=== PATIENT | male | born 1980 | race African-American/Black ===

== ENCOUNTER 2017-02-16 18:52 | Emergency (ER) | payer OTHER ==
[~2017-02-16 18:52] MED LIST: Ondansetron ODT 4 MG TAB ONE; Sodium Chloride 0.9% 1,000 ML BAG ONE
[2017-02-16 21:27] LABS: #Monocytes 0.5 thou/uL (0.11-0.59); #Neutrophils 3.3 thou/uL (1.40-6.50); %Basophils 0.8 % (0.0-1.0); %Eosinophils 0.7 % (0.0-10.0); %Lymphocytes 34.2 % (21.0-51.0); %Monocytes 8.2 % (0.0-10.0); %Neutrophils 56.2 % (42.0-75.0); Hemoglobin 17.9 g/dL (14.0-18.0); Mean Corpuscular HGB CONC 33.2 g/dL (32.0-36.0); Mean Corpuscular Hemoglobin 29.2 pg (27.0-31.0); Mean Platelet Volume 5.8 fL (7.4-10.4); Platelet Count 264 thou/uL (130-400); RBC Distribution Width 12.2 % (11.5-14.5); Red Blood Cell (RBC) Count 6.12 mill/uL (4.70-6.10); White Blood Cell (WBC) Count 5.9 thou/uL (4.8-10.8)
[2017-02-16 21:28] LABS: ALT (SGPT) 16 U/L (8-55); AST (SGOT) 20 U/L (5-34); Albumin 4.8 g/dL (3.5-5.0); Alkaline Phosphatase 84 U/L (40-150); Anion Gap 17 mmol/L (10-20); BUN (Urea Nitrogen) 15 mg/dL (8.9-20.6); CK (CPK) 139 U/L (30-200); Calc. Creatinine Clearance 0 mL/min (70-130); Calcium 9.8 mg/dL (7.8-10.44); Carbon Dioxide 25 mmol/L (22-29); Chloride 104 mmol/L (98-107); Estimated GFR-MDRD 66; Globulin 2.8 g/dL (2.4-3.5); Glucose 82 mg/dL (70-105); Lipase 23 U/L (8-78); Potassium 4.7 mmol/L (3.5-5.1); Protein, Total 7.6 g/dL (6.0-8.3); Sodium 141 mmol/L (136-145)
[2017-02-16 21:29] LABS: MDiff Complete? YES; Manual Diff?? NO
[2017-02-16 21:30] LABS: Bilirubin Positive (Negative); Clarity Clear (Clear); Glucose, Urine (Dipstick) Negative (Negative); Icto Positive (Negative); Leukocyte Negative (Negative); Nitrite Negative (Negative); Protein, Urine (Dipstick) Trace mg/dL (Neg-Trace); Specific Gravity, Urine 1.032 (1.002-1.036); pH, Urine 5.5 (5.0-9.0)
[2017-02-16 21:31] LABS: Bacteria/HPF None Seen HPF (None Seen); Blood, Urine Trace (Negative); RBC/HPF 0-3 HPF (0-3); Squamous Epithelial 0-3 HPF (0-3)
--- NOTE | 2017-02-17 07:31 | RAD ---
PORTABLE AP CHEST X-RAY 02/16/2017 HISTORY: Arm and chest pain. History of tuberculosis. FINDINGS: Cardiac silhouette and pulmonary vasculature are within normal limits. Lungs are clear. Osseous st ructures are intact. IMPRESSION: 1. No acute cardiopulmonary process. 2. No radiographic findings to suggest active tuberculosis. POS: [facility]
== END 2017-02-16 22:29 | disposition home or self-care (01) ==
LOC: NAV ERS 18:52
DX: E86.0 Dehydration (principal)
CPT/HCPCS: 71010; 80053; 81003; 81015; 82550; 83690; 85025; 96361; 96374; J7050; Q0162

== ENCOUNTER 2019-07-11 10:14 | Emergency (ER) | payer SELFPAY ==
[2019-07-11] MEDS ORDERED: cloNIDine 0.1 MG TAB ONE (10:49)
[2019-07-11 11:44] LABS: #Basophils 0.1 thou/uL (0.0-0.2); #Lymphocytes 1.5 thou/uL (1.20-3.40); #Monocytes 0.4 thou/uL (0.11-0.59); #Neutrophils 3.8 thou/uL (1.40-6.50); %Basophils 1.1 % (0.0-1.0); %Eosinophils 0.5 % (0.0-10.0); %Lymphocytes 25.9 % (21.0-51.0); %Monocytes 6.9 % (0.0-10.0); %Neutrophils 65.7 % (42.0-75.0); Hemoglobin 14.3 g/dL (14.0-18.0); Mean Corpuscular HGB CONC 33.6 g/dL (32.0-36.0); Mean Corpuscular Hemoglobin 31.6 pg (27.0-31.0); Mean Corpuscular Volume 93.9 fL (78.0-98.0); Mean Platelet Volume 5.5 fL (7.4-10.4); Platelet Count 291 thou/uL (130-400); RBC Distribution Width 13.5 % (11.5-14.5); Red Blood Cell (RBC) Count 4.54 mill/uL (4.70-6.10); White Blood Cell (WBC) Count 5.8 thou/uL (4.8-10.8)
--- NOTE | 2019-07-11 11:44 | RAD ---
EXAM: Chest PA and lateral: HISTORY: Chest pain COMPARISON: 02/16/2017 FINDINGS: Heart: Normal cardiac silhouette Aorta: Unremarkable Pulmonary vessels: Normal Costophrenic angles: Costophrenic angles are clear. Lungs: No consolidation or masses. Pneumothorax: No pneumothorax Osseous structures: No osseous abnormalities IMPRESSION: No acute cardiopulmonary process.
[2019-07-11 11:56] LABS: ALT (SGPT) 30 U/L (8-55); AST (SGOT) 27 U/L (5-34); Albumin 4.7 g/dL (3.5-5.0); Alkaline Phosphatase 71 U/L (40-110); Anion Gap 13 mmol/L (10-20); BUN (Urea Nitrogen) 9 mg/dL (8.9-20.6); Bilirubin, Total 0.6 mg/dL (0.2-1.2); Calc. Creatinine Clearance 0 mL/min (70-130); Calcium 9.4 mg/dL (7.8-10.44); Carbon Dioxide 27 mmol/L (22-29); Chloride 105 mmol/L (98-107); Estimated GFR-MDRD Greater than 90; Globulin 2.3 g/dL (2.4-3.5); Glucose 88 mg/dL (70-105); Sodium 141 mmol/L (136-145)
== END 2019-07-11 13:38 | disposition home or self-care (01) ==
LOC: NAV ERS 10:14
DX: F41.9 Anxiety disorder, unspecified (principal); I10 Essential (primary) hypertension; J45.909 Unspecified asthma, uncomplicated; F17.220 Nicotine dependence, chewing tobacco, uncomplicated
CPT/HCPCS: 36415; 71046; 80053; 85025; 93005

== ENCOUNTER 2019-07-11 18:24 | Emergency (ER) | payer SELFPAY ==
[2019-07-11] MEDS ORDERED: Lorazepam 0.5 MG TAB ONE (18:37)
== END 2019-07-11 20:43 | disposition home or self-care (01) ==
LOC: NAV ERS 18:24
DX: F41.0 Panic disorder [episodic paroxysmal anxiety] (principal); J45.909 Unspecified asthma, uncomplicated; F17.220 Nicotine dependence, chewing tobacco, uncomplicated
CPT/HCPCS: 99283

== ENCOUNTER 2019-12-11 16:14 | Emergency (ER) | payer SELFPAY | END 2019-12-11 16:53 | disposition home or self-care (01) | LOC: NAV ER/OP 16:14 | DX: S91.201A Unspecified open wound of right great toe with damage to nail, initial encounter (principal); I10 Essential (primary) hypertension; J45.909 Unspecified asthma, uncomplicated; F17.220 Nicotine dependence, chewing tobacco, uncomplicated; Z79.899 Other long term (current) drug therapy; W23.0XXA Caught, crushed, jammed, or pinched between moving objects, initial encounter | CPT/HCPCS: 99283 ==

== ENCOUNTER 2020-05-09 16:37 | Emergency (ER) | payer SELFPAY ==
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
== END 2020-05-09 18:23 | disposition home or self-care (01) ==
LOC: NAV ERS 16:37
DX: S40.011A Contusion of right shoulder, initial encounter (principal); S20.211A Contusion of right front wall of thorax, initial encounter; I10 Essential (primary) hypertension; F17.220 Nicotine dependence, chewing tobacco, uncomplicated; V43.53XA Car driver injured in collision with pick-up truck in traffic accident, initial encounter

== ENCOUNTER 2020-06-02 07:25 | Emergency (ER) | payer SELFPAY ==
[2020-06-02] MEDS ORDERED: Ketorolac Tromethamine 30 MG/ML VIAL ONE (07:53)
[2020-06-02] MEDS ORDERED: Ondansetron PF 4 MG/2 ML Vial ONE (07:53)
[2020-06-02] MEDS ORDERED: Pantoprazole 40 MG VIAL ONE (07:53)
--- NOTE | 2020-06-02 08:12 | RAD ---
RADIOGRAPH CHEST 2 VIEWS: DATE: 06/02/2020 HISTORY: 39-year-old male with chest pain FINDINGS: The lungs are clear. The cardiomediastinal silhouette and hilar shadows appear normal. There is no pl eural effusion or pneumothorax. IMPRESSION: Normal
[2020-06-02 08:19] LABS: #Lymphocytes 1.9 thou/uL (1.20-3.40); #Monocytes 0.8 thou/uL (0.11-0.59); %Basophils 0.5 % (0.0-1.0); %Eosinophils 0.5 % (0.0-10.0); %Monocytes 8.1 % (0.0-10.0); %Neutrophils 71.9 % (42.0-75.0); Hemoglobin 14.3 g/dL (14.0-18.0); Mean Corpuscular HGB CONC 33.1 g/dL (32.0-36.0); Mean Corpuscular Hemoglobin 29.3 pg (27.0-31.0); Mean Corpuscular Volume 88.5 fL (78.0-98.0); Mean Platelet Volume 6.4 fL (7.4-10.4); Platelet Count 249 thou/uL (130-400); RBC Distribution Width 11.8 % (11.5-14.5); Red Blood Cell (RBC) Count 4.88 mill/uL (4.70-6.10); White Blood Cell (WBC) Count 9.7 thou/uL (4.8-10.8)
[2020-06-02 08:42] LABS: ALT (SGPT) 17 U/L (8-55); AST (SGOT) 17 U/L (5-34); Albumin 4.3 g/dL (3.5-5.0); Alkaline Phosphatase 81 U/L (40-110); Anion Gap 16 mmol/L (10-20); BUN (Urea Nitrogen) 14 mg/dL (8.9-20.6); Bilirubin, Total 0.4 mg/dL (0.2-1.2); CK (CPK) 168 U/L (30-200); Calc. Creatinine Clearance 0 mL/min (70-130); Calcium 9.1 mg/dL (7.8-10.44); Carbon Dioxide 24 mmol/L (22-29); Chloride 103 mmol/L (98-107); Estimated GFR-MDRD Greater than 90; Globulin 2.5 g/dL (2.4-3.5); Glucose 106 mg/dL (70-105); Lipase 80 U/L (8-78); Potassium 3.6 mmol/L (3.5-5.1); Protein, Total 6.8 g/dL (6.0-8.3); Sodium 139 mmol/L (136-145)
[2020-06-02] MEDS ORDERED: Iopamidol 370 76% 100 ML VIAL ONE (09:00)
[2020-06-02 09:02] LABS: Bilirubin Small (Negative); Blood, Urine Moderate (Negative); Clarity Clear (Clear); Glucose, Urine (Dipstick) Negative (Negative); Ketone, Urine Trace mg/dL (Negative); Leukocyte Negative (Negative); Nitrite Negative (Negative); Protein, Urine (Dipstick) 30 mg/dL (Neg-Trace); Specific Gravity, Urine 1.025 (1.005-1.030); pH, Urine 6.5 (5.0-9.0)
[2020-06-02 09:12] LABS: Bacteria/HPF 1+ HPF (None Seen); Calcium Oxalate Crystals 1+ HPF (None Seen); Squamous Epithelial 0-3 HPF (0-3); WBC/HPF 0-3 HPF (0-3)
[2020-06-02 09:13] LABS: Amphetamine Not Detected (NotDetected); Barbiturates Screen Not Detected (NotDetected); Benzodiazepine Screen Not Detected (NotDetected); Cocaine Metabolite Screen Not Detected (NotDetected); Medtox Control Line Valid? VALID (VALID); Methadone Not Detected (NotDetected); Methamphetamine Not Detected (NotDetected); Opiate Screen Not Detected (NotDetected); Oxycodone Screen Not Detected (NotDetected); Phencyclidine (PCP) Not Detected (NotDetected); THC/Cannabinoid Screen Not Detected (NotDetected); Tricyclic Screen Not Detected (NotDetected)
--- NOTE | 2020-06-02 11:43 | CT ---
CT ABDOMEN WITH CONTRAST CT PELVIS WITH CONTRAST: DATE: 06/02/2020 HISTORY: 39-year-old male with abdominal pain TECHNIQUE: IV injection of iodinated contrast media: Administered Oral contrast media:Administered FINDINGS: This scan was obtained to sometime after the chest CT, and the contrast timing for the abdomen and pe lvis is delayed, with this being and excretory, pyelographic phase scan rather than a venous phase scan. Therefore, the contrast opacification of the organs is suboptimal. Liver: No focal solid mass. Spleen: No splenomegaly.. Pancreas: No mass or surrounding fat stranding.. Adrenals: No mass.. Kidneys: No hydronephrosis or enhancement abnormalities.. Ureters: No dilation. Bladder: No pathology identified. Abdominal aorta: No aneurysm. Small bowel: No dilation. Colon: No adjacent fat stranding. Appendix: Normal. Free air: None. Free fluid: None. Bones: There are several small sclerotic intraosseous lesions, at least 2 in the right ilium, and one in the right upper sacral ala. The largest one is slightly greater than 1 cm in the right ilium adjacent to the SI joint. IMPRESSION: 1) 3 small osteoblastic lesions, 2 of the right iliac bone and one in the right sacral ala. Unless th ere is a history of known primary malignancy, these are more likely to represent bone islands rather than osteoblastic skeletal metastases. Recommend correlation with history. 2) otherwise negative.
--- NOTE | 2020-06-02 12:04 | CT ---
CT CHEST WITH CONTRAST CLINICAL INDICATION: Chest pain for 3 days. Unable to take deep breaths. Pain is greater in region of left shoulder blade. COMPARISON: None FINDINGS: Aorta: The aorta is normal in caliber without evidence of an aortic dissection. Lungs: There is a rounded area of groundglass density in the posteromedial aspect of the superior seg ment left lower lobe measuring approximately 3.9 cm. I pneumonitis is a possibility, this does not have typical appearance for pneumonitis/pneumonia, and findings may related to rounded area of hemorr bijal. There is a small partially 3 mm pulmonary nodule in the right upper lobe which is too small to characterize. No pleural effusion is identified. Lungs are otherwise clear. Mediastinum: No enlarged lymph nodes are seen by CT size criteria. Thyroid gland: Incompletely imaged but otherwise normal in appearance. Osseous structures: No acute process. Chest wall: No abnormality visualized. Upper abdomen: Visualized upper abdomen demonstrates a normal CT appearance for phase of imaging IMPRESSION: Rounded groundglass density measuring 3.9 cm superior segment left lower lobe. Findings could potenti ally represent pneumonia or aspiration pneumonitis,, this does not exhibit typical characteristics for pneumonitis. However, this does remain a differential consideration. Findings could be related to pulmonary hemorrhage. If the patient has signs and symptoms of pneumonia/pneumonitis, treatment and follow-up evaluation is recommended. Follow-up is recommended to ensure resolution of this ground glass opacity. Above findings discussed with Dr. Freitas on 06/02/2020 at 1159 hours
== END 2020-06-02 12:38 | disposition home or self-care (01) ==
LOC: NAV ERS 07:25
DX: J16.8 Pneumonia due to other specified infectious organisms (principal); K29.00 Acute gastritis without bleeding; I10 Essential (primary) hypertension; J45.909 Unspecified asthma, uncomplicated; F41.9 Anxiety disorder, unspecified; F17.220 Nicotine dependence, chewing tobacco, uncomplicated
CPT/HCPCS: 71046; 71260; 74177; 80053; 80306; 81003; 81015; 82550; 83690; 84484; 85025; 93005; 94760; 96374; 96375; C9113; J1885; J2405; Q9967

== ENCOUNTER 2021-09-29 14:14 | Emergency (ER) | payer SELFPAY | END 2021-09-29 15:25 | disposition home or self-care (01) | LOC: NAV ERS 14:14 | DX: M25.562 Pain in left knee (principal); M25.462 Effusion, left knee; I10 Essential (primary) hypertension; J45.909 Unspecified asthma, uncomplicated; F17.220 Nicotine dependence, chewing tobacco, uncomplicated; W10.8XXA Fall (on) (from) other stairs and steps, initial encounter ==

== ENCOUNTER 2022-03-31 18:26 | Emergency (ER) | payer SELFPAY ==
[2022-03-31 18:53] LABS: #Basophils 0.1 thou/uL (0.0-0.2); #Eosinphils 0.1 thou/uL (0.0-0.7); #Lymphocytes 3.4 thou/uL (1.20-3.40); #Monocytes 0.6 thou/uL (0.11-0.59); #Neutrophils 3.2 thou/uL (1.40-6.50); %Basophils 1.6 % (0.0-1.0); %Eosinophils 1.6 % (0.0-10.0); %Lymphocytes 45.4 % (21.0-51.0); %Monocytes 8.5 % (0.0-10.0); %Neutrophils 42.9 % (42.0-75.0); Hemoglobin 16.4 g/dL (14.0-18.0); Mean Corpuscular HGB CONC 32.3 g/dL (32.0-36.0); Mean Corpuscular Hemoglobin 27.9 pg (27.0-31.0); Mean Corpuscular Volume 86.6 fL (78.0-98.0); Mean Platelet Volume 6.7 fL (7.4-10.4); Platelet Count 448 thou/uL (130-400); RBC Distribution Width 12.5 % (11.5-14.5); Red Blood Cell (RBC) Count 5.88 mill/uL (4.70-6.10); White Blood Cell (WBC) Count 7.5 thou/uL (4.8-10.8)
[2022-03-31 19:07] LABS: ALT (SGPT) 38 U/L (8-55); AST (SGOT) 22 U/L (5-34); Albumin 5.4 g/dL (3.5-5.0); Alkaline Phosphatase 99 U/L (40-110); Anion Gap 23 mmol/L (10-20); BUN (Urea Nitrogen) 12 mg/dL (8.9-20.6); CK (CPK) 328 U/L (30-200); Calc. Creatinine Clearance 0 mL/min (70-130); Calcium 10.7 mg/dL (7.8-10.44); Carbon Dioxide 20 mmol/L (22-29); Chloride 101 mmol/L (98-107); Estimated GFR 39; Globulin 3.4 g/dL (2.4-3.5); Glucose 126 mg/dL (70-105); Potassium 3.3 mmol/L (3.5-5.1); Protein, Total 8.8 g/dL (6.0-8.3); Sodium 141 mmol/L (136-145)
[2022-03-31] MEDS ORDERED: Sodium Chloride 0.9% 1,000 ML ONE ×2 (19:20→19:53)
[2022-03-31] MEDS ORDERED: Ketorolac Tromethamine 30 MG/ML VIAL ONE (19:21)
[2022-03-31] MEDS ORDERED: Cyclobenzaprine 10 MG TAB ONE (19:21)
[2022-03-31] MEDS ORDERED: Potassium Chloride 20 MEQ TAB ONE (19:53)
[2022-03-31] MEDS ORDERED: Potassium Chloride 20 MEQ TAB PO SCH (20:15)
== END 2022-03-31 21:10 | disposition home or self-care (01) ==
LOC: NAV ERS 18:26
DX: S29.012A Strain of muscle and tendon of back wall of thorax, initial encounter (principal); E87.6 Hypokalemia; E86.9 Volume depletion, unspecified; N28.9 Disorder of kidney and ureter, unspecified; I10 Essential (primary) hypertension; J45.909 Unspecified asthma, uncomplicated; F17.220 Nicotine dependence, chewing tobacco, uncomplicated; X50.0XXA Overexertion from strenuous movement or load, initial encounter
CPT/HCPCS: 71045; 80053; 82550; 83605; 84484; 85025; 93005; 96360; 96361; J1885; J7050